=== PATIENT | male | born 1975 | race Caucasian/White ===

== ENCOUNTER 2024-08-20 13:35 | Outpatient (CLI) | payer BC, SELFPAY ==
--- NOTE | 2024-08-20 13:45 | MR_ITS ---
EXAM: MRI of the RIGHT KNEE, without contrast CLINICAL INFORMATION: Male, 49 years old, with knee pain INDICATION: Evaluate for medial meniscus tear PRIOR SURGERY: None reported. PLAIN FILMS: Radiographs 08/14/2024. COMPARISONS: No prior MRIs available. TECHNICAL INFORMATION: Using a 1.5T MR scanner and a localizing surface coil: sagittals: PD, PDFS coronals: PD, T2FS axials: PD, PDFS SEDATION: None CONTRAST: None FINDINGS: Knee joint: Effusion: Large sized right knee effusion. Popliteal cyst: Moderate sized popliteal cyst with fluid along the fascial planes posteriorly consistent with rupture and leaking fluid Loose bodies: None. Subcutaneous and extra-articular soft tissues: Mild prepatellar subcutaneous soft tissue edema and skin thickening. Additional more moderate appearance of the anteromedial knee subcutaneous soft tissue edema. Ligaments: ACL: Intact ACL anteromedial and posterolateral bundles, without sprain or tear. PCL: Intact PCL, without acute or chronic injury. MCL: Fluid along the MCL is favored to be reactive, without evidence of ligament sprain or tear LCL: Intact LCL, without injury. Posterolateral corner: No posterolateral corner soft tissue injury. Popliteus, biceps femoris, iliotibial band, popliteofibular ligament and lateral gastrocnemius are intact. Posteromedial corner: No posteromedial corner soft tissue injury. Semimembranosus, pes anserine tendons and posterior oblique ligament are without injury, tendinopathy or bursitis. Extensor mechanism: Patellar tendon: Intact, without tendinopathy. Quadriceps tendon: Intact, without tendinopathy. Retinacula: Medial and lateral retinacula are intact. Fat pads: Unremarkable infrapatellar Hoffa's, quadriceps and prefemoral fat pads. Medial compartment: Medial meniscus: Medial meniscus is abnormal in appearance. There is truncation with complex undersurface tearing throughout the anterior horn, body, posterior horn. A displaced flap of meniscal tissue is directed centrally toward the intercondylar notch (coronal series 7 image 18). Additional torn flap of meniscal tissue from the anterior horn is recommended cranially along the anterior aspect of the medial femoral condyle, measuring approximately 1.2 cm (sagittal series 6 image 22). Anterior and posterior roots of the meniscus are intact. Medial femoral condyle: No chondromalacia or osteochondral abnormality. Medial tibial plateau: No chondromalacia or osteochondral abnormality. Lateral compartment: Lateral meniscus: No articular surface, meniscosynovial junction or root tear. No displacement, extrusion or parameniscal cyst. Lateral femoral condyle: No chondromalacia or osteochondral abnormality. Lateral tibial plateau: No chondromalacia or osteochondral abnormality. 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 Trochlea: No chondromalacia or osteochondral abnormality. Proximal tibiofibular joint: Unremarkable, without evidence of ligament sprain injury, joint effusion or adjacent marrow edema. Bones: No stress/occult fractures or other marrow edema/pathology. IMPRESSION: 1. Tearing throughout the medial meniscus with a bucket-handle type flap of torn meniscal tissue directed centrally toward the intercondylar notch. An additional torn flap of meniscal tissue from the anterior horn is directed cranially along the anterior medial femoral condyle, measuring 1.2 cm. 2. Small intra-articular osteophyte along the medial patellar facet with overlying grade IV chondromalacia measuring 8 x 4 mm. No underlying marrow reactive edema. 3. No lateral meniscus tear. Medial and lateral compartment articular cartilage is intact. 4. No cruciate or collateral ligament sprain/tear. 5. Large size knee joint effusion. Moderate popliteal cyst with evidence of rupture and leaking fluid. KME Electronically signed on 08/20/2024 6:21:00 PM by Dottie Mcclellan M.D.
== END 2024-08-20 13:36 | disposition home or self-care (01) ==
LOC: MRI 13:35
PROVIDERS: Visit Provider Orthopaedic Surgery
DX: M25.561 Pain in right knee (principal); S83.241A Other tear of medial meniscus, current injury, right knee, initial encounter; M22.41 Chondromalacia patellae, right knee; M25.461 Effusion, right knee; M71.21 Synovial cyst of popliteal space [Baker], right knee
CPT/HCPCS: 73721

== ENCOUNTER 2024-08-29 08:53 | Day surgery (SDC) | payer BC, SELFPAY ==
[2024-08-29] VITALS (12 sets, daily range): BP systolic 105–131; BP diastolic 69–95; PULSE 62–75; RESP 12–17; TEMP 35.9–36.7; O2SAT 92–100; BMI 30.7
[2024-08-29] MEDS: SODIUM CHLORIDE 0.9 % (FLUSH) 10 ML SYRINGE IVF (09:45)
[2024-08-29] MEDS: LACTATED RINGERS 1000 ML 1,000 ML 100 ML IV (09:45)
[2024-08-29] MEDS: CEFAZOLIN 1 GM inj IVP (11:12)
[2024-08-29] MEDS: BUPIVACAINE 0.25% 30 ML INJECTION (11:35)
--- NOTE | 2024-08-29 11:42 | PM.ORPRC ---
Procedure Note Date of procedure: 08/29/24 Procedure: PREOPERATIVE DIAGNOSIS: Right knee displaced bucket-handle medial meniscus tear POSTOPERATIVE DIAGNOSIS: Right knee displaced bucket-handle medial meniscus tear NAME OF OPERATION: Right knee arthroscopic partial medial meniscectomy SURGEON: Osmin Ramsey MD MOTOR VEHICLE FIELD REPRESENTATIVE: SATHYA Reynolds ANESTHESIA: Spinal ESTIMATED BLOOD LOSS: 0 mL COMPLICATIONS: None SPECIMENS: None DRAINS: None PREOPERATIVE ANTIBIOTICS: Ancef 2 gram INDICATIONS: The patient is a 49-year-old with a history of right knee medial pain. MRI scan is consistent with a displaced bucket-handle medial meniscus tear. Despite appropriate nonoperative management, including activity modification, antiinflammatories, [id number] pain medication, bracing, physical therapy, and injections they continue to have pain and disability. Operative intervention was offered. The risks, benefits and expected outcomes were discussed in detail. These included but were not limited to: Infection, bleeding, injury to blood vessel or nerve, venous thromboembolism. All questions were answered to their satisfaction. PROCEDURE: Spinal anesthesia was administered. The patient was placed supine on the operating room table. The right lower extremity was prepped and draped in the usual sterile fashion. The limb was exsanguinated with the Roberto bandage. The pneumatic tourniquet was inflated to 225 mmHg. A standard anterolateral portal was established. The arthroscope was introduced. The working portal was established anteromedially. Diagnostic arthroscopy was performed with findings as follows: The suprapatellar pouch is normal. Articular surface on the patella is normal. Articular surface on the trochlea is normal. The medial gutter is normal. The medial compartment shows normal articular cartilage on the medial femoral condyle and medial tibial plateau. The medial meniscus has a displaced bucket-handle tear. The tissue was quite poor and not repairable. The notch shows the ACL to be intact. The lateral compartment shows normal articular cartilage on the lateral femoral condyle and lateral tibial plateau. The lateral meniscus is normal. The lateral gutter is normal. The anterior apex of the tear was completed with the shaver. The displaced portion was debrided with the shaver. This does not result in subtotal or total medial meniscectomy. The peripheral rim of the anterior horn was contoured with the shaver through both portals, taken to a stable base. Arthroscopic instruments were removed, the portal sites were Steri-Stripped closed, the knee was infiltrated with 30 mL of 0.25% Marcaine without epinephrine. A dry dressing was applied, the tourniquet was released. Sponge and needle counts were correct x 2. The patient tolerated the procedure well. There were no apparent complications. They were carefully transferred to the hospital bed and taken to the postanesthesia care unit in satisfactory condition. PLAN: The patient will be discharged to home. They may weightbear as tolerates. Range of motion will be unrestricted. They will follow up in the office next week for a wound check.
--- NOTE | 2024-08-29 11:53 | P.ANES_ITS ---
Anesthesia Charges Start Date/Time Anesthesia Start Date: 08/29/24 Anesthesia Start Time: 10:50 Stop Date/Time Anesthesia Stop Date: 08/29/24 Anesthesia Stop Time: 11:52 Coding CPT Codes CPT Codes: ANESTH KNEE JOINT SURGERY - 12815 ([id number]) P2 - PATIENT W/MILD SYST DISEASE, QK - WIRELESS RETAIL MANAGER 2-4 CNCRNT ANES PROC, QX - INDUSTRY CONSULTANT SVC W/ MD MED DIRECTION
--- NOTE | 2024-08-29 11:53 | W.ANESCHARGE ---
Anesthesia Charges Start Date/Time Anesthesia Start Date: 08/29/24 Anesthesia Start Time: 10:50 Stop Date/Time Anesthesia Stop Date: 08/29/24 Anesthesia Stop Time: 11:52 Coding CPT Codes CPT Codes: ANESTH KNEE JOINT SURGERY - 98308 ([id number]) P2 - PATIENT W/MILD SYST DISEASE, QK - ADULT EDUCATION PROFESSIONAL 2-4 CNCRNT ANES PROC, QX - GUNSTOCK SPRAY UNIT ADJUSTER SVC W/ MD MED DIRECTION
--- NOTE | 2024-08-29 11:57 | P.ANES_ITS ---
Anesthesia Charges Start Date/Time Anesthesia Start Date: 08/29/24 Anesthesia Start Time: 10:50 Stop Date/Time Anesthesia Stop Date: 08/29/24 Anesthesia Stop Time: 11:52 Coding CPT Codes CPT Codes: ANESTH KNEE JOINT SURGERY - 42816 ([id number]) QK - SCHOOL BASED THERAPIST 2-4 CNCRNT ANES PROC, QX - ADMINISTRATIVE OFFICER SVC W/ MD MED DIRECTION, P2 - PATIENT W/MILD SYST DISEASE
--- NOTE | 2024-08-29 11:57 | W.ANESCHARGE ---
Anesthesia Charges Start Date/Time Anesthesia Start Date: 08/29/24 Anesthesia Start Time: 10:50 Stop Date/Time Anesthesia Stop Date: 08/29/24 Anesthesia Stop Time: 11:52 Coding CPT Codes CPT Codes: ANESTH KNEE JOINT SURGERY - 00296 ([id number]) QK - INTERNSHIP COORDINATOR 2-4 CNCRNT ANES PROC, QX - DRIVER MATERIAL HANDLER SVC W/ MD MED DIRECTION, P2 - PATIENT W/MILD SYST DISEASE
== END 2024-08-29 13:10 | disposition home or self-care (01) ==
PROVIDERS: Visit Provider Orthopaedic Surgery
PROC: (CPT 29870; principal; 2024-08-29 10:30)
DX: S83.211A Bucket-handle tear of medial meniscus, current injury, right knee, initial encounter (principal)
CPT/HCPCS: 29881; 01400; J0665; J0690; J1100; J2250; J2405; J2704; J3010; J3490; J7120